=== PATIENT | female | born 1940 | race Caucasian/White ===

== ENCOUNTER 2017-11-03 18:20 | Inpatient (IN) ==
[2017-11-03 19:22] LABS: Apearance,Urine CLOUDY (Clear); Bacteria,Urine Many /HPF (Few); Bilirubin,Urine Negative (Negative); Blood, Urine Negative (Negative); Glucose,Urine (UA) Negative (Negative); Ketones,Urine 20 mg/dL (Negative); Mucus,Urine Occasional /LPF (Occasional); Nitrite,Urine Negative (Negative); Protein,Urine 30 MG/DL; RBC,Urine 7 /HPF (0-4); Squamous Epithelial Cell,Urine Many /HPF (0-10); Urine Color Amber (Yellow); Urine Specific Gravity 1.024 (1.001-1.035); Urine Urobilinogen < 2.0 EU/DL (0.2-1.0); WBC,Urine 8 /HPF (0-6)
[2017-11-03 19:23] LABS: Basophils # 0.1 10*3/uL (0.0-0.2); Basophils % 0.8 % (0.0-0.8); Eosinophils # 0.1 10*3/uL (0.0-0.87); Hemoglobin 11.9 GM/DL (12.0-16.0); Immature Granulocytes % 0.3 %; Immature Granulocytes Absolute 0.02 #; Lymphocytes # 0.9 10*3/uL (1.4-4.0); Mean Corpuscular HGB Conc 32.2 GM/DL (32-36); Mean Corpuscular Hemoglobin 30 PG (27-34); Mean Platelet Volume 9.5 FL (9.6-12.0); Monocytes # 0.8 10*3/uL (0.11-0.8); Monocytes % 10.7 % (1.7-12.7); Neutrophils # 5.2 10*3/uL (1.4-7.4); Neutrophils % 73.2 % (38.7-73.9); Platelet Count 280 T/CUMM (130-400); Red Blood Count 4.02 MC/CUMM (3.8-5.5); White Blood Count 7.1 T/CUMM (4-12)
[2017-11-03 19:45] LABS: Albumin 3.2 G/DL (3.4-5.0); Bilirubin,Total 0.4 MG/DL (0.2-1.0); Calcium 8.1 MG/DL (8.5-10.1); Osmolality,Calculated 275.5 MOS/KG (273-304); Potassium 4.1 MMOL/L (3.5-5.1); Total Protein 6.5 G/DL (6.4-8.3)
[2017-11-03] MEDS ORDERED: diphenhydrAMINE 50 MG/1 ML VIAL IM STA (20:46)
[2017-11-03] MEDS ORDERED: DEXAMETHASONE 4 MG/1 ML VIAL IV STA (20:47)
[2017-11-03] MEDS ORDERED: DEXAMETHASONE 4 MG/1 ML VIAL ONE (20:48)
[2017-11-03] MEDS ORDERED: diphenhydrAMINE 50 MG/1 ML VIAL ONE (20:48)
[2017-11-03] MEDS ORDERED: DEXAMETHASONE 4 MG/1 ML VIAL IM STA (20:53)
[2017-11-03] MEDS ORDERED: MORPHINE 2 MG/1 ML SYRINGE IV PRN (23:07)
[2017-11-03] MEDS ORDERED: ONDANSETRON 4 MG/2 ML VIAL IV PRN (23:07)
[2017-11-03] MEDS ORDERED: PROMETHAZINE 25 MG TABLET PO PRN (23:07)
[2017-11-04] MEDS: ACETAMINOPHEN 325 MG TABLET PO PRN ×2 (00:10→23:30)
[2017-11-04] MEDS: DOCUSATE SODIUM 100 MG CAPSULE PO SCH ×2 (08:40→20:14)
[2017-11-04] MEDS: PANTOPRAZOLE 40 MG TABLET PO SCH (08:40)
[2017-11-04] MEDS ORDERED: BISACODYL 10 MG SUPP RECTAL PRN (13:12)
[2017-11-05 04:19] LABS: Basophils % 0.4 % (0.0-0.8); Eosinophils # 0.1 10*3/uL (0.0-0.87); Eosinophils % 1.9 % (0.00-10.9); Hemoglobin 10.9 GM/DL (12.0-16.0); Immature Granulocytes % 0.1 %; Immature Granulocytes Absolute 0.01 #; Lymphocytes % 13.7 % (21.3-54.2); Mean Corpuscular HGB Conc 32.1 GM/DL (32-36); Mean Corpuscular Hemoglobin 29 PG (27-34); Mean Corpuscular Volume 91.4 FL (87-102); Mean Platelet Volume 10.5 FL (9.6-12.0); Monocytes # 0.7 10*3/uL (0.11-0.8); Monocytes % 10.5 % (1.7-12.7); Neutrophils # 5.1 10*3/uL (1.4-7.4); Neutrophils % 73.4 % (38.7-73.9); Platelet Count 248 T/CUMM (130-400); Red Blood Count 3.72 MC/CUMM (3.8-5.5); Red Cell Distribution Width 12.1 % (9.3-17.3); White Blood Count 6.9 T/CUMM (4-12)
[2017-11-05 04:52] LABS: Calcium 7.3 MG/DL (8.5-10.1); Osmolality,Calculated 279.3 MOS/KG (273-304); Potassium 4.3 MMOL/L (3.5-5.1)
[2017-11-05] MEDS: DOCUSATE SODIUM 100 MG CAPSULE PO SCH ×2 (10:08→20:37)
[2017-11-05] MEDS: PANTOPRAZOLE 40 MG TABLET PO SCH (10:09)
[2017-11-05 13:28] LABS: Cancer Antigen 19-9 15.8 U/ML (0-37); Carcinoembryonic Antigen 2.6 NG/ML (0.0-5.0)
[2017-11-06 03:28] LABS: Basophils % 0.5 % (0.0-0.8); Eosinophils # 0.1 10*3/uL (0.0-0.87); Eosinophils % 1.4 % (0.00-10.9); Hematocrit 34.2 VOL% (35.7-47.0); Hemoglobin 11.1 GM/DL (12.0-16.0); Immature Granulocytes % 0.5 %; Immature Granulocytes Absolute 0.04 #; Lymphocytes # 0.8 10*3/uL (1.4-4.0); Lymphocytes % 10.8 % (21.3-54.2); Mean Corpuscular HGB Conc 32.5 GM/DL (32-36); Mean Corpuscular Hemoglobin 30 PG (27-34); Monocytes # 0.8 10*3/uL (0.11-0.8); Monocytes % 10.2 % (1.7-12.7); Neutrophils # 5.9 10*3/uL (1.4-7.4); Neutrophils % 76.6 % (38.7-73.9); Platelet Count 321 T/CUMM (130-400); Red Blood Count 3.76 MC/CUMM (3.8-5.5); White Blood Count 7.8 T/CUMM (4-12)
[2017-11-06 03:54] LABS: Calcium 7.5 MG/DL (8.5-10.1); Osmolality,Calculated 278.3 MOS/KG (273-304); Potassium 4.1 MMOL/L (3.5-5.1)
[2017-11-06] MEDS: PANTOPRAZOLE 40 MG TABLET PO SCH (09:46)
[2017-11-06] MEDS: DOCUSATE SODIUM 100 MG CAPSULE PO SCH (09:46)
[2017-11-06 12:13] VITALS: BP 127/69
== END 2017-11-06 14:43 | disposition home or self-care (01) | DRG 375 ==
LOC: N.ED 18:20 → N.EDINP 22:30 → N.3E 23:00
PROVIDERS: ADMIT Family Medicine; ATTEND Family Medicine

== ENCOUNTER 2018-01-05 16:48 | Inpatient (IN) ==
[2018-01-05] MEDS ORDERED: SODIUM CHLORIDE 0.9% 2,000 ML IV STA (17:18)
[2018-01-05] MEDS ORDERED: ONDANSETRON 4 MG/2 ML VIAL IV STA (17:18)
[2018-01-05] MEDS ORDERED: ONDANSETRON 4 MG/2 ML VIAL ONE (17:43)
[2018-01-05 18:27] LABS: Basophils % 0.1 % (0.0-0.8); Hematocrit 28.1 VOL% (35.7-47.0); Hemoglobin 8.6 GM/DL (12.0-16.0); Immature Granulocytes % 0.4 %; Immature Granulocytes Absolute 0.03 #; Lymphocytes # 0.3 10*3/uL (1.4-4.0); Lymphocytes % 3.7 % (21.3-54.2); Mean Corpuscular HGB Conc 30.6 GM/DL (32-36); Mean Corpuscular Hemoglobin 26 PG (27-34); Mean Corpuscular Volume 85.2 FL (87-102); Mean Platelet Volume 10.1 FL (9.6-12.0); Monocytes # 0.2 10*3/uL (0.11-0.8); Monocytes % 2.3 % (1.7-12.7); Neutrophils # 7.1 10*3/uL (1.4-7.4); Neutrophils % 93.5 % (38.7-73.9); Platelet Count 337 T/CUMM (130-400); Red Cell Distribution Width 14.3 % (9.3-17.3); White Blood Count 7.6 T/CUMM (4-12)
[2018-01-05 18:45] LABS: Apearance,Urine CLOUDY (Clear); Bilirubin,Urine Negative (Negative); Blood, Urine Small mg/dL (Negative); Glucose,Urine (UA) Negative (Negative); Ketones,Urine 5 mg/dL (Negative); Mucus,Urine Occasional /LPF (Occasional); Nitrite,Urine Negative (Negative); Protein,Urine 100 MG/DL; RBC,Urine 6 /HPF (0-4); Squamous Epithelial Cell,Urine Moderate /HPF (0-10); Urine Color Amber (Yellow); Urine Specific Gravity 1.021 (1.001-1.035); Urine Urobilinogen < 2.0 EU/DL (0.2-1.0); WBC,Urine 59 /HPF (0-6)
[2018-01-05 18:50] LABS: Albumin 2.3 G/DL (3.4-5.0); Bilirubin,Total 0.5 MG/DL (0.2-1.0); Calcium 7.8 MG/DL (8.5-10.1); Osmolality,Calculated 286.4 MOS/KG (273-304); Potassium 3.8 MMOL/L (3.5-5.1); Total Protein 5.3 G/DL (6.4-8.3)
[2018-01-05] MEDS ORDERED: ALUM/MAG/SIMETH/LIDO VISC 1:1 30 ML BOTTLE PO ONE ×2 (19:45→19:50)
[2018-01-05] MEDS ORDERED: MYLANTA/LIDO VISC 2:1 300 ML BOTTLE SWISH/SWAL PRN (19:52)
[2018-01-05] MEDS ORDERED: chlorproMAZINE INJ 50 MG in SODIUM CHLORIDE 0.9% 100 ML IV PRN (19:52)
[2018-01-05] MEDS ORDERED: MYLANTA/LIDO VISC 2:1 300 ML BOTTLE SWISH/SPIT PRN (19:52)
[2018-01-05] MEDS ORDERED: ALPRAZolam 0.25 MG TABLET PO PRN (19:52)
[2018-01-05] MEDS ORDERED: ACETAMINOPHEN 325 MG TABLET PO PRN (19:52)
[2018-01-05] MEDS ORDERED: guaiFENesin 200 MG/10 ML UDCUP PO PRN (19:52)
[2018-01-05] MEDS ORDERED: MAGNESIUM HYDROXIDE SUSP 30 ML UDCUP PO PRN (19:52)
[2018-01-05] MEDS ORDERED: PROMETHAZINE INJ 25 MG in SODIUM CHLORIDE 0.9% 50 ML IV PRN (19:52)
[2018-01-05] MEDS ORDERED: LOPERAMIDE 2 MG CAPSULE PO PRN (19:52)
[2018-01-05] MEDS ORDERED: chlorproMAZINE 25 MG TABLET PO PRN (19:52)
[2018-01-05] MEDS ORDERED: traMADol 50 MG TABLET PO PRN (19:52)
[2018-01-05] MEDS ORDERED: TEMAZEPAM 7.5 MG CAPSULE PO PRN (19:52)
[2018-01-05] MEDS ORDERED: diphenhydrAMINE CAP 25 MG CAPSULE PO PRN (19:52)
[2018-01-05] MEDS ORDERED: BENZTROPINE 2 MG/2 ML AMP IV PRN (19:52)
[2018-01-05] MEDS ORDERED: LACTULOSE 20 GM/30 ML UDCUP PO PRN (19:52)
[2018-01-05] MEDS ORDERED: chlorproMAZINE INJ 25 MG in SODIUM CHLORIDE 0.9% 100 ML IV PRN (19:52)
[2018-01-05] MEDS ORDERED: LEVOFLOXACIN 500 MG TABLET PO SCH (20:00)
[2018-01-05 20:11] LABS: Lymphocytes 1 % (20-55); Platelet Estimate Normal; Polychromasia Few; Segmented Neutrophils 97 % (50-85); Total Cells Counted 100
[2018-01-06] MEDS ORDERED: LEVOFLOXACIN INJ 750 MG in PREMIX 1 EACH IV SCH (01:00)
[2018-01-06] MEDS: DEXTROSE 5% NACL 0.9% 1,000 ML IV SCH (01:11)
[2018-01-06] MEDS: ONDANSETRON 4 MG/2 ML VIAL IV PRN (01:21)
[2018-01-06] MEDS: ALUMINUM/MAGNES/SIMETH MAX STR 30 ML UDCUP PO PRN ×2 (10:38→22:50)
[2018-01-06 11:27] LABS: Basophils % 0.2 % (0.0-0.8); Eosinophils # 0.1 10*3/uL (0.0-0.87); Hematocrit 23.4 VOL% (35.7-47.0); Hemoglobin 7.2 GM/DL (12.0-16.0); Immature Granulocytes % 0.7 %; Immature Granulocytes Absolute 0.04 #; Lymphocytes # 0.3 10*3/uL (1.4-4.0); Lymphocytes % 4.2 % (21.3-54.2); Mean Corpuscular HGB Conc 30.8 GM/DL (32-36); Mean Corpuscular Hemoglobin 26 PG (27-34); Mean Corpuscular Volume 84.8 FL (87-102); Mean Platelet Volume 10.1 FL (9.6-12.0); Monocytes # 0.1 10*3/uL (0.11-0.8); Monocytes % 1.8 % (1.7-12.7); Neutrophils # 5.5 10*3/uL (1.4-7.4); Neutrophils % 92.1 % (38.7-73.9); Platelet Count 267 T/CUMM (130-400); Red Blood Count 2.76 MC/CUMM (3.8-5.5); Red Cell Distribution Width 14.4 % (9.3-17.3)
[2018-01-06] MEDS ORDERED: PANTOPRAZOLE 40 MG VIAL IV SCH (11:30)
[2018-01-06] MEDS ORDERED: FOSAPREPITANT 150 MG in SODIUM CHLORIDE 0.9% 100 ML IV ONE (11:30)
[2018-01-06] MEDS ORDERED: HYDROmorphone 2 MG TABLET PO PRN (11:32)
[2018-01-06 11:36] LABS: INR 1.1; PT Patient Result 11.8 SECS
[2018-01-06] MEDS ORDERED: SODIUM CHLORIDE 0.9% 1,000 ML IV PRN (11:40)
[2018-01-06 11:49] LABS: Calcium 7.5 MG/DL (8.5-10.1); Osmolality,Calculated 287.3 MOS/KG (273-304)
[2018-01-06 11:57] LABS: Giant Platelets Few; Hypochromasia 1+; Lymphocytes 8 % (20-55); Platelet Estimate Adequate; Segmented Neutrophils 90 % (50-85); Total Cells Counted 100
[2018-01-06] MEDS ORDERED: SODIUM CHLORIDE 0.9% 500 ML IV ONE (15:21)
[2018-01-06] MEDS ORDERED: PANTOPRAZOLE 40 MG VIAL IV ONE (15:24)
[2018-01-06] MEDS: cefTRIAXone 1,000 MG in SYRINGE 1 EACH IV SCH (16:01)
[2018-01-06] MEDS: PANTOPRAZOLE 40 MG VIAL IV SCH (21:13)
[2018-01-07] MEDS: cefTRIAXone 1,000 MG in SYRINGE 1 EACH IV SCH ×2 (04:21→15:01)
[2018-01-07] MEDS: DEXTROSE 5% NACL 0.9% 1,000 ML IV SCH ×2 (04:42→21:04)
[2018-01-07 06:04] LABS: Basophils % 0.3 % (0.0-0.8); Eosinophils # 0.2 10*3/uL (0.0-0.87); Eosinophils % 3.3 % (0.00-10.9); Hematocrit 31.2 VOL% (35.7-47.0); Immature Granulocytes % 0.3 %; Immature Granulocytes Absolute 0.02 #; Lymphocytes # 0.3 10*3/uL (1.4-4.0); Lymphocytes % 4.4 % (21.3-54.2); Mean Corpuscular HGB Conc 31.1 GM/DL (32-36); Mean Corpuscular Hemoglobin 27 PG (27-34); Mean Corpuscular Volume 85.7 FL (87-102); Mean Platelet Volume 10.8 FL (9.6-12.0); Monocytes # 0.1 10*3/uL (0.11-0.8); Monocytes % 1.6 % (1.7-12.7); Neutrophils # 5.7 10*3/uL (1.4-7.4); Neutrophils % 90.1 % (38.7-73.9); Platelet Count 269 T/CUMM (130-400); Red Blood Count 3.64 MC/CUMM (3.8-5.5); Red Cell Distribution Width 14.4 % (9.3-17.3); White Blood Count 6.4 T/CUMM (4-12)
[2018-01-07 06:19] LABS: Hemoglobin 9.7 GM/DL (12.0-16.0)
[2018-01-07 06:29] LABS: Albumin 1.7 G/DL (3.4-5.0); Bilirubin,Total 0.9 MG/DL (0.2-1.0); Calcium 7.3 MG/DL (8.5-10.1); Osmolality,Calculated 291.8 MOS/KG (273-304); Potassium 3.7 MMOL/L (3.5-5.1); Total Protein 4.8 G/DL (6.4-8.3)
[2018-01-07 07:12] LABS: Burr Cells Slight; Eosinophils 3 % (0-10); Giant Platelets Few; Hypochromasia 1+; Lymphocytes 2 % (20-55); Ovalocytes Slight; Platelet Estimate Adequate; Segmented Neutrophils 94 % (50-85); Total Cells Counted 100
[2018-01-07] MEDS: PANTOPRAZOLE 40 MG VIAL IV SCH ×2 (09:20→21:06)
[2018-01-07] MEDS: ONDANSETRON 4 MG/2 ML VIAL IV PRN (09:22)
[2018-01-07] MEDS: FILGRASTIM-SNDZ 300 MCG/0.5 ML SYRINGE SUBCUT SCH (11:30)
[2018-01-07] MEDS: METOCLOPRAMIDE 10 MG/10 ML UDCUP PO SCH ×3 (11:36→23:56)
[2018-01-08] MEDS: cefTRIAXone 1,000 MG in SYRINGE 1 EACH IV SCH ×2 (04:49→16:46)
[2018-01-08 05:25] LABS: Basophils % 0.2 % (0.0-0.8); Eosinophils # 0.2 10*3/uL (0.0-0.87); Eosinophils % 1.1 % (0.00-10.9); Hematocrit 30.9 VOL% (35.7-47.0); Hemoglobin 9.7 GM/DL (12.0-16.0); Immature Granulocytes % 10.7 %; Immature Granulocytes Absolute 1.91 #; Lymphocytes # 0.4 10*3/uL (1.4-4.0); Lymphocytes % 2.3 % (21.3-54.2); Mean Corpuscular HGB Conc 31.4 GM/DL (32-36); Mean Corpuscular Hemoglobin 27 PG (27-34); Mean Corpuscular Volume 86.3 FL (87-102); Monocytes # 0.1 10*3/uL (0.11-0.8); Monocytes % 0.7 % (1.7-12.7); Neutrophils # 15.2 10*3/uL (1.4-7.4); Platelet Count 200 T/CUMM (130-400); Red Blood Count 3.58 MC/CUMM (3.8-5.5); Red Cell Distribution Width 14.6 % (9.3-17.3); White Blood Count 17.9 T/CUMM (4-12)
[2018-01-08 05:50] LABS: Band Neutrophils 1 % (0-10); Eosinophils 1 % (0-10); Giant Platelets Few; Hypochromasia 1+; Lymphocytes 2 % (20-55); Ovalocytes Slight; Platelet Estimate Adequate; Segmented Neutrophils 95 % (50-85); Total Cells Counted 100
[2018-01-08 06:01] LABS: Albumin 1.7 G/DL (3.4-5.0); Bilirubin,Total 0.5 MG/DL (0.2-1.0); Calcium 7.3 MG/DL (8.5-10.1); Potassium 3.5 MMOL/L (3.5-5.1); Total Protein 4.6 G/DL (6.4-8.3)
[2018-01-08] MEDS: METOCLOPRAMIDE 10 MG/10 ML UDCUP PO SCH ×4 (06:57→23:50)
[2018-01-08] MEDS ORDERED: diphenhydrAMINE 50 MG/1 ML VIAL ONE (08:44)
[2018-01-08] MEDS ORDERED: methylPREDNISolone SOD SUC 125 MG/2 ML VIAL ONE (08:44)
[2018-01-08] MEDS ORDERED: ONDANSETRON 4 MG/2 ML VIAL ONE (08:45)
[2018-01-08] MEDS ORDERED: diphenhydrAMINE 50 MG/1 ML VIAL IV ONE (09:18)
[2018-01-08] MEDS ORDERED: methylPREDNISolone SOD SUC 125 MG/2 ML VIAL IV ONE (09:18)
[2018-01-08] MEDS: ONDANSETRON 4 MG/2 ML VIAL IV PRN (09:29)
[2018-01-08 10:28] LABS: Neutrophils,Peritoneal Fluid 20 %
[2018-01-08 10:31] LABS: RBC,Peritoneal Fluid 631 T/CUMM
[2018-01-08] MEDS: FILGRASTIM-SNDZ 300 MCG/0.5 ML SYRINGE SUBCUT SCH (10:46)
[2018-01-08] MEDS: PANTOPRAZOLE 40 MG VIAL IV SCH ×2 (10:46→21:00)
[2018-01-08] MEDS: DEXTROSE 5% NACL 0.9% 1,000 ML IV SCH (22:20)
[2018-01-09] MEDS: cefTRIAXone 1,000 MG in SYRINGE 1 EACH IV SCH (03:25)
[2018-01-09] MEDS: METOCLOPRAMIDE 10 MG/10 ML UDCUP PO SCH (05:37)
[2018-01-09] MEDS: LOPERAMIDE 2 MG CAPSULE PO PRN ×3 (06:52→17:05)
[2018-01-09] MEDS: FILGRASTIM-SNDZ 300 MCG/0.5 ML SYRINGE SUBCUT SCH (08:39)
[2018-01-09] MEDS: PANTOPRAZOLE 40 MG TABLET PO SCH ×2 (08:39→20:37)
[2018-01-10] MEDS: LOPERAMIDE 2 MG CAPSULE PO PRN ×2 (04:54→09:33)
[2018-01-10] MEDS ORDERED: LIDOCAINE 2% 5 ML VIAL ONE (05:56)
[2018-01-10] MEDS ORDERED: PROPOFOL 200 MG/20 ML VIAL IV ONE (05:56)
[2018-01-10 06:04] LABS: Basophils # 0.1 10*3/uL (0.0-0.2); Basophils % 0.4 % (0.0-0.8); Eosinophils # 0.5 10*3/uL (0.0-0.87); Eosinophils % 3.1 % (0.00-10.9); Hematocrit 30.2 VOL% (35.7-47.0); Hemoglobin 9.9 GM/DL (12.0-16.0); Immature Granulocytes % 11.4 %; Immature Granulocytes Absolute 1.68 #; Lymphocytes # 0.5 10*3/uL (1.4-4.0); Lymphocytes % 3.2 % (21.3-54.2); Mean Corpuscular HGB Conc 32.8 GM/DL (32-36); Mean Corpuscular Hemoglobin 28 PG (27-34); Mean Corpuscular Volume 85.3 FL (87-102); Mean Platelet Volume 10.7 FL (9.6-12.0); Monocytes # 0.5 10*3/uL (0.11-0.8); Monocytes % 3.4 % (1.7-12.7); Neutrophils # 11.6 10*3/uL (1.4-7.4); Neutrophils % 78.5 % (38.7-73.9); Platelet Count 124 T/CUMM (130-400); Red Blood Count 3.54 MC/CUMM (3.8-5.5); White Blood Count 14.8 T/CUMM (4-12)
[2018-01-10 06:33] LABS: Band Neutrophils 4 % (0-10); Hypochromasia 1+; Lymphocytes 4 % (20-55); Ovalocytes Slight; Platelet Estimate Normal; Segmented Neutrophils 85 % (50-85); Total Cells Counted 100
[2018-01-10 08:12] VITALS: BP 145/71
[2018-01-10] MEDS: PANTOPRAZOLE 40 MG TABLET PO SCH (08:41)
[2018-01-10] MEDS: FILGRASTIM-SNDZ 300 MCG/0.5 ML SYRINGE SUBCUT SCH (08:41)
== END 2018-01-10 11:26 | disposition home health service (06) | DRG 357 ==
LOC: N.EDINP 16:48 → N.ED 16:48 → N.4E 20:09
PROVIDERS: ADMIT Specialist; ATTEND Specialist